=== PATIENT | male | born 1955 | race Caucasian/White ===

== ENCOUNTER → 2017-02-05 | Outpatient (CLI) | payer BC ==
[~2017-02-05] MED LIST: CLARITIN10 MG; KEFLEX; NABUMETONE; PRILOSEC; SYNTHROID; [UNRECOGNIZED DRUG - REMARK]
--- NOTE | ~2017-02-05 | CR172 ---
[facility] A Service of [facility] RADIOLOGY TEXT RESULTS PATIENT: WILI BLACKBURN JR LOCATION: [facility] #: [id number] : 53 UNIT #: [id number] AGE: [address]: Ana Lilia Siddiqi MD SEX: M ORDER DR: [id number] [facility]. [place], [place] [address] [id number] O MR#: [id number] [facility] #: [id number] NAME: WILI BLACKBURN : 1955 SEX: M STUDY DATE/TIME: 02/05/2017 17:03 UNIT: [facility] ROOM: STUDY DESCRIPTION: CR Knee 3 Views Lt Attending Physician: Ana Lilia Siddiqi M.D. Referring Physician: Ana Lilia Siddiqi M.D. Ordering Physician: Ana Lilia Siddiqi M.D. Primary Care Physician: Wil Perez M.D. MEDICAL IMAGING REPORT This report is preliminary unless electronic signature is present EXAM Left knee 02/05/2017 INDICATION 61-year-old male with stiffness in the left knee mostly with standing. Pain radiating distally. Symptoms 2 weeks prior injury in 1979. TECHNIQUE 3 views of the left knee. COMPARISON No comparison. FINDINGS Advanced tricompartmental degenerative changes are present. There is advanced joint space narrowing in the medial and lateral compartments with osteophytosis. Chronic fracture deformity of the proximal tibia. There is patellofemoral joint space narrowing. No acute fracture. Minimal if any joint fluid present. Atherosclerotic changes. There are calcifications related to the lateral collateral ligament. IMPRESSION 1. Advanced degenerative change in the left knee. Probable sequela of prior fracture involving the proximal tibia and secondary degenerative change. No acute fracture or significant joint effusion. Dictated by... Timothy Peña M.D. THIS IS AN ELECTRONICALLY VERIFIED REPORT Timothy Peña M.D. at 02/07/2017 8:07 AM [facility] A Service of [facility] RADIOLOGY TEXT RESULTS PATIENT: WILI BLACKBURN JR LOCATION: [facility] #: [id number] : 53 UNIT #: [id number] AGE: [address]: Ana Lilia Siddiqi MD SEX: M ORDER DR: Olena TD: 02/07/2017 07:49 JOB #: [id number] MEDICAL IMAGING REPORT Page 1 of 1 COPY
== END | disposition home or self-care (01) ==
LOC: CRAD 16:36
DX: M17.12 Unilateral primary osteoarthritis, left knee (principal)
CPT/HCPCS: 73562